=== PATIENT | female | born 1940 | race Caucasian/White ===

== ENCOUNTER 2018-04-02 18:53 | Observation (INO) | payer MEDICARE, OTHER ==
[2018-04-02] MEDS ORDERED: IPRATROPIUM/ALBUTEROL 0.5-2.5 MG/3 ML AMPUL NEB ONE (19:45)
--- NOTE | 2018-04-02 19:47 | ER Document Report ---
ED Medical Screen (RME) - General Chief Complaint: Altered Mental Status Stated Complaint: TROUBLE BREATHING/CONFUSION Time Seen by Provider: 04/02/18 19:44 Mode of Arrival: Wheelchair Information source: Patient Notes: 78 years old female with a history of COPD, on 2 L nasal cannula, flew down from [place] yesterday, today feeling a little lethargic ,coughing, shortness of breath and also not herself therefore brought her to the ED. Has chronic cough. TRAVEL OUTSIDE OF THE [place] IN LAST 30 DAYS: No - Related Data Allergies/Adverse Reactions: acetaminophen [From Percocet] Allergy (Verified 04/02/18 19:07) oxycodone [From Percocet] Allergy (Verified 04/02/18 19:07) Past Medical History - Social History Frequency of alcohol use: None Drug Abuse: None Renal/ Medical History: Denies: Hx Peritoneal Dialysis Physical Exam - Vital signs Vitals: Temp Pulse Resp BP Pulse Ox 99.2 F 83 14 147/64 H 89 L 04/02/18 19:17 04/02/18 19:17 04/02/18 19:17 04/02/18 19:17 04/02/18 19:17 Course - Vital Signs Vital signs: Temp Pulse Resp BP Pulse Ox 99.2 F 83 14 147/64 H 89 L 04/02/18 19:17 04/02/18 19:17 04/02/18 19:17 04/02/18 19:17 04/02/18 19:17 Doctor's Discharge - Discharge Referrals: HOWIE,NO [Primary Care Provider] - Follow up as needed
[2018-04-02 20:40] LABS: ABSOLUTE EOSINOPHILS # (AUTO) 0.1 10^3/uL (0.0-0.6); ABSOLUTE LYMPHOCYTES (AUTO) 0.5 10^3/uL (0.5-4.7); ABSOLUTE MONOCYTES (AUTO) 0.2 10^3/uL (0.1-1.4); ABSOLUTE NEUT (AUTO) 5.8 10^3/uL (1.7-8.2); BASOPHILS % (AUTO) 0.3 % (0-2); EOSINOPHILS % (AUTO) 0.8 % (0-6); HEMATOCRIT 38.2 % (36.0-47.0); HEMOGLOBIN 12.8 g/dL (12.0-15.5); LYMPHOCYTES % (AUTO) 8.2 % (13-45); MEAN CORPUSCULAR HGB CONC 33.5 g/dL (32.0-36.0); MEAN CORPUSCULAR VOLUME 96 fl (80-97); PLATELET COUNT 164 10^3/uL (150-450); RED CELL DISTRIBUTION WIDTH 13.3 % (11.5-14.0); SEGMENTED NEUTROPHILS % (AUTO) 87.7 % (42-78); TOTAL CELLS COUNTED % (AUTO) 100 %; WHITE BLOOD COUNT 6.6 10^3/uL (4.0-10.5)
[2018-04-02 20:41] LABS: APPEARANCE,URINE CLEAR; BILIRUBIN,URINE NEGATIVE (NEGATIVE); COLOR,URINE STRAW; GLUCOSE, URINE NEGATIVE (NEGATIVE); KETONES,URINE NEGATIVE (NEGATIVE); LEUKOCYTE ESTERASE,URINE NEGATIVE (NEGATIVE); NITRITE,URINE NEGATIVE (NEGATIVE); PROTEIN,URINE NEGATIVE (NEGATIVE); URINE SPECIFIC GRAVITY 1.006; UROBILINOGEN,URINE NEGATIVE mg/dL (<2.0)
[2018-04-02] MEDS ORDERED: METHYLPREDNISOLONE INJ 125 MG/2 ML SDV IV ONE (20:51)
[2018-04-02 20:57] LABS: ALANINE AMINOTRANSFERASE 26 U/L (9-52); ALBUMIN 4.1 g/dL (3.5-5.0); ALKALINE PHOSPHATASE 71 U/L (38-126); ANION GAP 10 (5-19); ASPARTATE AMINO TRANSFERASE 33 U/L (14-36); BILIRUBIN,DIRECT 0.3 mg/dL (0.0-0.4); BILIRUBIN,TOTAL 0.7 mg/dL (0.2-1.3); BLOOD UREA NITROGEN 10 mg/dL (7-20); CALCIUM 10.1 mg/dL (8.4-10.2); CARBON DIOXIDE 35 mmol/L (22-30); CHLORIDE 96 mmol/L (98-107); GLUCOSE 116 mg/dL (75-110); SODIUM 141.2 mmol/L (137-145); TOTAL PROTEIN 7.1 g/dL (6.3-8.2)
[2018-04-02] MEDS ORDERED: ALBUTEROL SULFATE 0.083% NEB 2.5 MG/3 ML AMPUL NEB ONE ×2 (20:58→22:14)
--- NOTE | 2018-04-02 21:00 | RADIOLOGY REPORT (SQ) ---
EXAM DESCRIPTION: CHEST SINGLE VIEW COMPLETED DATE/TIME: 04/02/2018 8:33 pm REASON FOR STUDY: Shortness of breath COMPARISON: 05/07/2009 EXAM PARAMETERS: NUMBER OF VIEWS: One view. TECHNIQUE: Single frontal radiographic view of the chest acquired. RADIATION DOSE: NA LIMITATIONS: None. FINDINGS: LUNGS AND PLEURA: No opacities, masses or pneumothorax. No pleural effusion. MEDIASTINUM AND HILAR STRUCTURES: No masses. Contour normal. HEART AND VASCULAR STRUCTURES: Heart normal in size. Normal vasculature. BONES: Marked scoliosis. HARDWARE: None in the chest. OTHER: No other significant finding. IMPRESSION: Scoliosis. No acute cardiopulmonary disease. TECHNICAL DOCUMENTATION: JOB ID: [id number] [employer]- All Rights Reserved Reading location - IP/workstation name: [email or web address]
[2018-04-02 21:09] LABS: CREATINE KINASE MB 0.88 ng/mL (<4.55); NT PRO BNP 795 pg/mL (<450)
[2018-04-02 21:10] LABS: TROPONIN I < 0.012 ng/mL
--- NOTE | 2018-04-02 21:11 | ER Document Report ---
ED Respiratory Problem - General Mode of Arrival: Wheelchair Information source: Patient TRAVEL OUTSIDE OF THE [place] IN LAST 30 DAYS: No <CORNELIO RG - Last Filed: 04/02/18 22:34> <MARK SZYMANSKI - Last Filed: 04/03/18 00:30> - General Chief Complaint: Altered Mental Status Stated Complaint: TROUBLE BREATHING/CONFUSION Time Seen by Provider: 04/02/18 19:44 Notes: 78-year-old female who presents to the emergency department today with complaints of shortness of breath and a cough. Patient has COPD from an extensive smoking history. Patient stopped smoking approximately 45 years ago. Patient is visiting her daughter here from out of state but she states she did bring her breathing treatments with her but they did not help. Patient denies fevers. (CORNELIO RG) 78-year-old female patient brought to the emergency room by her daughter for confusion and shortness of breath. Therefore she had been coughing a little more than usual over the last 2-3 days. Patient states it is a nonproductive cough. They had called her pulmonary medicine [facility] in [place] who offered to "send out a Z-Elio" if they felt she needed for her COPD. The patient states she has not been on prednisone and quite some time. The daughter reports about a week ago she had episodes of double vision and off- balance that was attributed to her gabapentin. She had been taking 100 mg dose and it was increased to 300 mg. Her doctor told her to go back to the 100 mg dose. The patient came here to visit, did bring her inhalers and her nebulizer machine , but brought the 300 mg gabapentin. She did take 1 dose about midnight last night. The daughter reports she called her mother about noon today and woke her up. She reports her mother seemed a little confused initially and then was okay. About 4:30 in the afternoon she became a little confused, had slurred to garbled type speech, and seemed to have difficulty walking. She also had a worsening of her shortness of breath. When I saw her in the emergency room about 8:35 PM, the daughter reported that her speech had completely cleared up along with her drowsiness and confusion. At triage her pulse ox was 89% on 2 L nasal cannula, the daughter reports that is normal for this patient. (MARK SZYMANSKI) - Related Data Allergies/Adverse Reactions: acetaminophen [From Percocet] Allergy (Verified 04/02/18 19:07) estrogens, conjugated [From Premarin] Allergy (Verified 04/02/18 19:47) oxycodone [From Percocet] Allergy (Verified 04/02/18 19:07) Past Medical History - General Information source: Patient - Social History Smoking Status: Former Smoker Cigarette use (# per day): No Frequency of alcohol use: None Drug Abuse: None Lives with: Family Family History: Reviewed & Not Pertinent Patient has suicidal ideation: No Patient has homicidal ideation: No - Past Medical History Cardiac Medical History: Reports: Hx Hypercholesterolemia, Hx Hypertension Pulmonary Medical History: Reports: Hx COPD Renal/ Medical History: Denies: Hx Peritoneal Dialysis Past Surgical History: Reports: Hx Abdominal Surgery, Hx Appendectomy, Hx Section, Hx Hysterectomy, Hx Thyroid Surgery <ARCNEIOCORNELIO - Last Filed: 04/02/18 22:34> Review of Systems - Review of Systems Constitutional: No symptoms reported EENT: No symptoms reported Cardiovascular: No symptoms reported Respiratory: See HPI, Cough, Short of breath, Wheezing Gastrointestinal: No symptoms reported Genitourinary: No symptoms reported Female Genitourinary: No symptoms reported Musculoskeletal: No symptoms reported Skin: No symptoms reported Hematologic/Lymphatic: No symptoms reported Neurological/Psychological: No symptoms reported -: Yes All other systems reviewed and negative <ARCENIOCORNELIO - Last Filed: 04/02/18 22:34> Physical Exam <ARCENIOCORNELIO - Last Filed: 04/02/18 22:34> <MARK SZYMANSKI - Last Filed: 04/03/18 00:30> - Vital signs Vitals: Temp Pulse Resp BP Pulse Ox 99.2 F 83 14 147/64 H 89 L 04/02/18 19:17 04/02/18 19:17 04/02/18 19:17 04/02/18 19:17 04/02/18 19:17 - Notes Notes: Physical Exam: General: Alert, appears well. HEENT: Normocephalic. Atraumatic. PERRL. Extraocular movements intact. Oropharynx clear. Neck: Supple. Non-tender. Respiratory: No respiratory distress. Tight expiratory wheezing bilaterally. Cardiovascular: Regular rate and rhythm. Abdominal: Normal Inspection. Non-tender. No distension. Normal Bowel Sounds. Back: Non-tender. No deformity or step off. Extremities: Moves all four extremities. Upper extremities: Normal inspection. Normal ROM. Lower extremities: Normal inspection. No edema. Normal ROM. Neurological: Normal cognition. AAOx4. Normal speech. Psychological: Normal affect. Normal Mood. Skin: Warm. Dry. Normal color. (CORNELIO RG) Course - Laboratory Result Diagrams: 04/02/18 20:21 04/02/18 20:21 <CORNELIO RG - Last Filed: 04/02/18 22:34> - Laboratory Result Diagrams: 04/02/18 20:21 04/02/18 20:21 - Diagnostic Test Radiology reviewed: Image reviewed, Reports reviewed - Chest x-ray shows significant thoracic scoliosis without acute lung changes. CT scan is unremarkable. - EKG Interpretation by Me EKG shows normal: Sinus rhythm, [place], Intervals, QRS Complexes. abnormal: ST-T Waves - Nonspecific anterior lateral T abnormalities Rate: Normal - 74 Rhythm: NSR When compared to previous EKG there are: Previous EKG unavailable - Consults Dr. Jose Time consulted: 00:20 Consulted provider: will come to ER <MARK SZYMANSKI - Last Filed: 04/03/18 00:30> - Re-evaluation Re-evalutation: 04/02/18 23:30 At this time the patient continues to be completely alert and oriented, states her breathing feels as good as normal if not better. Her lungs are much more clear now she does not have as much expiratory wheeze that was heard initially. Her heart is rate is regular, the monitor confirms this, she does not have bruits in her neck. (MARK SZYMANSKI) - Vital Signs Vital signs: Temp Pulse Resp BP Pulse Ox 99.2 F 101 H 18 140/56 H 96 04/02/18 19:17 04/02/18 23:00 04/02/18 23:00 04/02/18 23:00 04/02/18 23:00 - Laboratory Laboratory results interpreted by me: 04/02/18 04/02/18 04/02/18 20:21 20:21 20:21 Seg Neutrophils % 87.7 H Lymphocytes % 8.2 L Chloride 96 L Carbon Dioxide 35 H Glucose 116 H NT-Pro-B Natriuret Pep 795 H Discharge <CORNELIO RG - Last Filed: 04/02/18 22:34> - Discharge Admitting Provider: Hospitalist Unit Admitted: Telemetry <MARK SZYMANSKI - Last Filed: 04/03/18 00:30> - Discharge Clinical Impression: COPD exacerbation, TIA (transient ischemic attack) Condition: Stable Disposition: ADMITTED OBSERVATION Referrals: LOCALMD,NO [NO LOCAL MD] - Follow up as needed Scribe Attestation: 04/02/18 21:12 I personally performed the services described in the documentation, reviewed and edited the documentation which was dictated to the scribe in my presence, and it accurately records my words and actions. (MARK SZYMANSKI) Scribe Documentation - Scribe Written by Rowena:: Rowena Christy, 04/02/2018 [id number] acting as scribe for :: Jerrica <CORNELIO RG - Last Filed: 04/02/18 22:34>
--- NOTE | 2018-04-02 22:28 | EKG REPORT ---
SEVERITY:- ABNORMAL ECG - SINUS RHYTHM NONSPECIFIC T ABNORMALITIES, ANT-LAT LEADS : Confirmed by: Morena Judge MD 02-Apr-2018 22:26:45
--- NOTE | 2018-04-03 00:19 | RADIOLOGY REPORT (SQ) ---
EXAM DESCRIPTION: CT HEAD WITHOUT IV CONTRAST COMPLETED DATE/TME: 04/02/2018 23:22 CLINICAL HISTORY: 78 years Female, TIA COMPARISON: None. TECHNIQUE: No contrast. Coronal and sagittal reformat. This exam was performed according to our departmental dose-optimization program, which includes automated exposure control, adjustment of the mA and/or kV according to patient size and/or use of iterative reconstruction technique. FINDINGS: No hemorrhage or infarct. No mass, mass effect, or midline shift. Atherosclerosis. Brain and extra-axial structures appear otherwise intact. IMPRESSION: No acute findings.
[2018-04-03] MEDS ORDERED: ONDANSETRON HCL INJ/PF 4 MG/2 ML SDV IV PRN (02:34)
[2018-04-03] MEDS ORDERED: MAG HYDROX/AL HYDROX/SIMETH SUSP 30 ML UDCUP PO PRN (02:34)
[2018-04-03] MEDS ORDERED: MAGNESIUM HYDROXIDE SUSP 30 ML UDCUP PO PRN (02:34)
[2018-04-03] MEDS ORDERED: ZOLPIDEM TARTRATE 5 MG TABLET PO ONE (03:45)
[2018-04-03] MEDS ORDERED: TRAZODONE HCL 50 MG TABLET PO ONE (04:00)
--- NOTE | 2018-04-03 04:08 | PDOC H&P ---
History of Present Illness Admission Date/PCP: 04/03/18 00:36 Patient complains of: Dizziness, difficulty walking and double vision History of Present Illness: INDRA [place] is a 78 year old female with history of multiple medical problems that will be mentioned below who presented to the emergency room with acute onset of dizziness with associated difficulty with ambulation as well as diplopia that occurred twice in addition to confusion and slurred speech. She had a recent URI with worsening dyspnea cough and wheezing. Her cough has been nonproductive. She denies any fever or chills. No nausea vomiting or abdominal pain. No paresthesias or focal muscle weakness. No tendinitis or vertigo. She denied any urinary or stool incontinence. Upon presentation to the emergency room vital signs revealed a temperature of 99.2 and a pulse oximetry of 89% on room air blood pressure of 147/64 with a pulse of 83 and respiratory rate of 14. Labs were remarkable for a chloride of 96 and CO2 35 with a glucose of 116. BNP was 795 and troponin I less than 0.0- 12 otherwise CMP and CBC were within normal. Head CT scan revealed no acute intracranial abnormalities and chest x-ray showed no acute cardiopulmonary disease. EKG showed normal sinus rhythm with no acute abnormalities. The patient was given duo nebs as well as nebulized albuterol twice in the emergency room and IV Solu-Medrol. She will be admitted to an observation medically monitored bed for further evaluation and management. Past Medical History Cardiac Medical History: Reports: Hyperlipidema, Hypertension Pulmonary Medical History: Reports: Chronic Obstructive Pulmonary Disease (COPD) Endocrine Medical History: Reports: Hypothyroidism Musculoskeletal History Note: Scoliosis Past Surgical History Past Surgical History: Reports: Appendectomy, Section, Cholecystectomy , Hysterectomy, Thyroidectomy, Tonsillectomy Social History Lives with: Family Smoking Status: Former Smoker Frequency of Alcohol Use: None Hx Recreational Drug Use: No Family History Family History: CVA, DM Parental Family History Reviewed: Yes Children Family History Reviewed: Yes Sibling(s) Family History Reviewed.: Yes Medication/Allergy Home Medications: Fluticasone/Salmeterol [Advair 250-50 Diskus 28 dose] 2 inh IH QHS 04/03/18 Levothyroxine Sodium 1 tab PO QAM 04/03/18 Lisinopril [Lisinopril] 1 tab PO QAM 08/07/18 Trazodone HCl 150 mg PO QHS 04/03/18 Umeclidinium [place] [Incruse Ellipta] 2 puff IH QAM 04/03/18 Zolpidem Tartrate 2.5 mg PO QHS 04/03/18 Allergies/Adverse Reactions: acetaminophen [From Percocet] Allergy (Verified 04/02/18 19:07) estrogens, conjugated [From Premarin] Allergy (Verified 04/02/18 19:47) oxycodone [From Percocet] Allergy (Verified 04/02/18 19:07) Review of Systems Review of Systems: As per history of present illness. All pertinent systems were reviewed above. Constitutional, HEENT, cardiovascular, respiratory, GI, , musculoskeletal, neuro, psychiatric, endocrine, integumentary and hematologic systems were reviewed and are otherwise negative/unremarkable except for positive findings mentioned above in the HPI. Physical Exam Vital Signs: Temp Pulse Resp BP Pulse Ox 97.9 F 81 16 115/52 L 97 04/03/18 00:00 04/03/18 03:00 04/03/18 03:00 04/03/18 03:00 04/03/18 03:00 Exam: Generally: Very pleasant 78-year-old female in no acute distress Vital signs-as listed Head - atraumatic, normocephalic. Pupils - equal, round and reactive to light and accommodation. Extraocular movements are intact. No scleral icterus. Oropharynx - moist mucous membranes and tongue. No pharyngeal erythema or exudate. Neck - supple. No JVD. Carotid pulses 2+ bilaterally. No carotid bruits. No palpable thyromegaly or lymphadenopathy. Cardiovascular - regular rate and rhythm. Normal S1 and S2. No murmurs, gallops or rubs. Lungs -diminished expiratory airflow with diffuse expiratory wheezes and harsh vesicular breathing. Abdomen - soft and nontender. Positive bowel sounds. No palpable organomegaly or masses. Extremities - no pitting edema, clubbing or cyanosis. Neuro - grossly non-focal with grossly intact cranial nerves II through XII. Muscle strength were equal 5/5 in both upper and lower extremities with normal sensory exam to light touch.. Skin - no rashes. Breast, pelvic and rectal - deferred Results Impressions: Chest X-Ray 04/02/18 19:45 IMPRESSION: Scoliosis. No acute cardiopulmonary disease. Head CT 04/02/18 23:22 IMPRESSION: No acute findings. Assessment & Plan - Diagnosis (1) TIA (transient ischemic attack) Is this a current diagnosis for this admission?: Yes Plan: The patient will be admitted to an observation medically monitored bed. We will follow neuro checks q.4 hours for 24 hours. The patient will be placed on aspirin. Will obtain a brain MRI without contrast as well as bilateral carotid Doppler and 2D echo with bubble study . Physical/occupation/speech therapy consults will be obtained in a.m.. The patient will be placed on statin therapy and fasting lipids will be checked. (2) COPD exacerbation Is this a current diagnosis for this admission?: Yes Plan: The patient will be placed on IV steroid therapy with IV Solu-Medrol as well as nebulized bronchodilator therapy with duonebs q.i.d. and q.4 hours p.r.n., mucolytic therapy with Mucinex. O2 protocol will be followed. (3) Hypothyroidism Is this a current diagnosis for this admission?: Yes Plan: We will continue Synthroid and check TSH level (4) Hypertension Qualifiers: Hypertension type: essential hypertension Qualified Code(s): I10 - Essential (primary) hypertension Is this a current diagnosis for this admission?: Yes Plan: We will continue lisinopril and allow permissive hypertension (5) DVT prophylaxis Is this a current diagnosis for this admission?: Yes Plan: Subcutaneous Lovenox - Plan Summary Plan Summary: The plan of care was discussed in details with the patient. I answered all questions. The patient agreed to proceed with the above-mentioned plan. The patient is presumably full code. This note was created by [employer] software and may contain typo errors that may have not been proofread.
[2018-04-03] MEDS: NORMAL SALINE 1000 ML 1,000 ML IV PRN ×2 (05:00→17:41)
[2018-04-03] MEDS: LANSOPRAZOLE 30 MG TAB.RAP.DR PO SCH (06:20)
[2018-04-03] MEDS: METHYLPREDNISOLONE INJ 40 MG/1 ML SDV IV SCH ×3 (06:20→22:11)
[2018-04-03 06:58] LABS: ANION GAP 10 (5-19); BLOOD UREA NITROGEN 13 mg/dL (7-20); CALCIUM 9.3 mg/dL (8.4-10.2); CARBON DIOXIDE 33 mmol/L (22-30); CHLORIDE 99 mmol/L (98-107); GLUCOSE 171 mg/dL (75-110); POTASSIUM 4.3 mmol/L (3.6-5.0); SODIUM 141.8 mmol/L (137-145); TRIGLYCERIDES 69 mg/dL (<150)
[2018-04-03 07:08] LABS: DIRECT LDL 89 mg/dL (<100)
[2018-04-03] MEDS ORDERED: LEVOTHYROXINE SODIUM 0.088 MG TABLET PO SCH (08:00)
[2018-04-03] MEDS ORDERED: UMECLIDINIUM BROMIDE IH SCH (08:00)
--- NOTE | 2018-04-03 10:35 | RADIOLOGY REPORT (SQ) ---
EXAM DESCRIPTION: MRI HEAD WITHOUT COMPLETED DATE/TIME: 04/03/2018 10:14 am REASON FOR STUDY: TIA COMPARISON: None. TECHNIQUE: Multiplanar imaging includes non-contrasted T1, T2, FLAIR, and Diffusion with ADC map seq uences. Images stored on PACS. LIMITATIONS: None. FINDINGS: ANATOMY: No anomalies. Normal vascular flow voids. Pituitary fossa normal. CSF SPACES: Normal in size and contour. No hemorrhage. CEREBRUM: A few high-signal intensity lesions scattered throughout the white matter on FLAIR imaging with distribution suggesting chronic micro-vascular ischemic change. Sulci and gyri normal in size a nd contour. No evidence of hemorrhage, mass or extraaxial fluid collection. POSTERIOR FOSSA: No signal alteration. No hemorrhage. No edema, masses or mass effect. Internal samantha tory canals, cerebello-pontine angles, normal. Small amount of fluid in the right mastoid. DIFFUSION: Negative for acute or sub-acute infarction. ORBITS: No masses. Globes normal. PARANASAL SINUSES: No fluid levels. Mucosa normal. OTHER: No other significant finding. IMPRESSION: MINIMAL MICROVASCULAR ISCHEMIC CHANGE. OTHERWISE NORMAL STUDY. EVIDENCE OF ACUTE STROKE: NO. TECHNICAL DOCUMENTATION: JOB ID: [id number] [employer]- All Rights Reserved Reading location - IP/workstation name: [email or web address]
[2018-04-03] MEDS: ASPIRIN 81 MG TABLET, ENT COATED PO SCH (12:00)
[2018-04-03] MEDS: GUAIFENESIN 600 MG TABLET.SA PO SCH ×2 (12:07→22:11)
[2018-04-03] MEDS: LISINOPRIL 10 MG TABLET PO SCH (12:07)
[2018-04-03] MEDS: ALBUTEROL SULFATE 0.083% NEB 2.5 MG/3 ML AMPUL NEB SCH ×2 (12:12→15:28)
[2018-04-03] MEDS: ENOXAPARIN SODIUM INJ 40 MG/0.4 ML DISP.SYRIN SUBCUT SCH (15:09)
[2018-04-03] MEDS: IPRATROPIUM/ALBUTEROL 0.5-2.5 MG/3 ML AMPUL NEB SCH ×3 (15:27→17:28)
[2018-04-03] MEDS: LEVOTHYROXINE SODIUM 0.088 MG TABLET PO SCH (17:31)
[2018-04-03] MEDS: ALBUTEROL SULFATE 0.083% NEB 2.5 MG/3 ML AMPUL NEB PRN (21:52)
[2018-04-03] MEDS: TRAZODONE HCL 50 MG TABLET PO SCH (22:11)
[2018-04-03] MEDS: ZOLPIDEM TARTRATE 5 MG TABLET PO SCH (22:14)
[2018-04-04] MEDS: NORMAL SALINE 1000 ML 1,000 ML IV PRN ×2 (03:08→16:16)
[2018-04-04 04:27] LABS: ANION GAP 7 (5-19); BLOOD UREA NITROGEN 21 mg/dL (7-20); CARBON DIOXIDE 31 mmol/L (22-30); CHLORIDE 104 mmol/L (98-107); GLUCOSE 152 mg/dL (75-110); POTASSIUM 4.3 mmol/L (3.6-5.0); SODIUM 141.5 mmol/L (137-145)
[2018-04-04] MEDS: LEVOTHYROXINE SODIUM 0.088 MG TABLET PO SCH (05:34)
[2018-04-04] MEDS: LANSOPRAZOLE 30 MG TAB.RAP.DR PO SCH (05:34)
[2018-04-04] MEDS: METHYLPREDNISOLONE INJ 40 MG/1 ML SDV IV SCH ×2 (05:34→14:25)
[2018-04-04] MEDS: LISINOPRIL 10 MG TABLET PO SCH (09:15)
[2018-04-04] MEDS: ASPIRIN 81 MG TABLET, ENT COATED PO SCH (09:16)
[2018-04-04] MEDS: GUAIFENESIN 600 MG TABLET.SA PO SCH ×2 (09:16→21:58)
[2018-04-04] MEDS: ENOXAPARIN SODIUM INJ 40 MG/0.4 ML DISP.SYRIN SUBCUT SCH (09:16)
--- NOTE | 2018-04-04 16:37 | PDOC PROGRESS REPORT ---
Subjective Progress Note for:: 04/04/18 Subjective:: Admitted with possible TIA with dizziness. Symptoms have completely resolved. Patient is however waiting for echocardiogram and how to Doppler studies to be done prior to discharge Reason For Visit: TIA, COPD EXACERBATION Physical Exam Vital Signs: Temp Pulse Resp BP Pulse Ox 98.5 F 67 16 140/56 H 95 04/04/18 15:37 04/04/18 15:37 04/04/18 15:37 04/04/18 15:37 04/04/18 15:37 Intake & Output 04/03/18 04/04/18 04/05/18 06:59 06:59 06:59 Intake Total 1999 1000 Balance 1999 1000 Weight 55.5 kg General appearance: PRESENT: no acute distress, well-developed, well-nourished Head exam: PRESENT: atraumatic Eye exam: PRESENT: PERRLA Mouth exam: PRESENT: moist, tongue midline Neck exam: PRESENT: lymphadenopathy Respiratory exam: PRESENT: clear to auscultation lori. ABSENT: rales, rhonchi, wheezes GI/Abdominal exam: PRESENT: normal bowel sounds, soft. ABSENT: distended, guarding, mass, organolmegaly, rebound, tenderness Rectal exam: PRESENT: deferred Neurological exam: PRESENT: alert, oriented to person, oriented to place, oriented to time, oriented to situation, CN II-XII grossly intact, motor sensory deficit, normal gait Results Laboratory Results: 04/04/18 03:58 04/04/18 03:58 Sodium 141.5 Potassium 4.3 Chloride 104 Carbon Dioxide 31 H Anion Gap 7 BUN 21 H Creatinine 0.58 Est GFR ( Amer) > 60 Est GFR (Non-Af Amer) > 60 Glucose 152 H Calcium 9.0 Impressions: Chest X-Ray 04/02/18 19:45 IMPRESSION: Scoliosis. No acute cardiopulmonary disease. Head CT 04/02/18 23:22 IMPRESSION: No acute findings. Head MRI 04/03/18 08:00 IMPRESSION: MINIMAL MICROVASCULAR ISCHEMIC CHANGE. OTHERWISE NORMAL STUDY. EVIDENCE OF ACUTE STROKE: NO. Assessment & Plan - Diagnosis (1) TIA (transient ischemic attack) Is this a current diagnosis for this admission?: Yes Plan: Continue ASA Obtain tests as ordered (2) COPD exacerbation Is this a current diagnosis for this admission?: Yes Plan: DC steroids and continue bronchodilators (3) Hypertension Qualifiers: Hypertension type: essential hypertension Qualified Code(s): I10 - Essential (primary) hypertension Is this a current diagnosis for this admission?: Yes (4) Hypothyroidism Is this a current diagnosis for this admission?: Yes Plan: Stable - Time Time Spent with patient: 15-24 minutes Medications reviewed and adjusted accordingly: Yes Anticipated discharge: Home Within: within 24 hours - Inpatient Certification Based on my medical assessment, after consideration of the patient's comorbidities, presenting symptoms, or acuity I expect that the services needed warrant INPATIENT care.: Yes Medical Necessity: Need Close Monitoring Due to Risk of Patient Decompensation, Other - Need to obtain imaging studies which are still pending
[2018-04-04] MEDS: ZOLPIDEM TARTRATE 5 MG TABLET PO SCH (21:58)
[2018-04-04] MEDS: TRAZODONE HCL 50 MG TABLET PO SCH (21:58)
[2018-04-05] MEDS: LANSOPRAZOLE 30 MG TAB.RAP.DR PO SCH (05:51)
[2018-04-05] MEDS: LEVOTHYROXINE SODIUM 0.088 MG TABLET PO SCH (05:51)
[2018-04-05] MEDS: ALBUTEROL SULFATE 0.083% NEB 2.5 MG/3 ML AMPUL NEB PRN (09:23)
--- NOTE | 2018-04-05 09:42 | Physician Advisory Note ---
Physician Advisor ProgressNote .: Pursuant to the plan for [facility], I have reviewed the medical record for this patient. Physician Advisor Statement: Please consider documenting, if you agree: 1. "Chronic hypoxemic respiratory failure, requiring 2L O2 at baseline" 2.
[2018-04-05] MEDS: LISINOPRIL 10 MG TABLET PO SCH (09:49)
[2018-04-05] MEDS: ENOXAPARIN SODIUM INJ 40 MG/0.4 ML DISP.SYRIN SUBCUT SCH (09:49)
[2018-04-05] MEDS: ASPIRIN 81 MG TABLET, ENT COATED PO SCH (09:50)
[2018-04-05] MEDS: GUAIFENESIN 600 MG TABLET.SA PO SCH (09:50)
[2018-04-05] MEDS ORDERED: IPRATROPIUM/ALBUTEROL 0.5-2.5 MG/3 ML AMPUL NEB PRN (12:46)
[2018-04-05] MEDS ORDERED: IPRATROPIUM/ALBUTEROL 0.5-2.5 MG/3 ML AMPUL NEB SCH (16:00)
--- NOTE | 2018-04-05 16:31 | RADIOLOGY REPORT (SQ) ---
EXAM DESCRIPTION: CAROTID DOPPLER COMPLETED DATE/TIME: 04/05/2018 4:19 pm REASON FOR STUDY: R/o CVA G45.9 TRANSIENT CEREBRAL ISCHEMIC ATTACK, UNSPECIFIED COMPARISON: MRI brain 04/03/2018 CT brain 04/03/2018 TECHNIQUE: Grayscale ultrasound, Doppler velocity and spectra, and color Doppler images acquired of the extra-cranial carotid and vertebral arteries. Images stored on PACS. LIMITATIONS: None. FINDINGS: RIGHT CAROTID CCA Velocities: Within normal limits. ICA Velocities Peak systolic 0.8 m/s. End diastolic 0.21 m/s. Proximal ICA/CCA peak systolic ratio normal. Spectra normal. Minimal spotty calcific plaque at the right carotid bifurcation without flow signifi cant stenosis LEFT CAROTID CCA Velocities: Within normal limits. ICA Velocities Peak systolic 0.77 m/s. End diastolic 0.15 m/s. Proximal ICA/CCA peak systolic ratio normal. Spectra normal. Minimal spotty calcific plaque at the left carotid bifurcation without flow signific ant stenosis VERTEBRAL ARTERIES: Antegrade flow. Normal waveforms. SUBCLAVIAN ARTERIES: Not evaluated OTHER: No other significant finding. IMPRESSION: No flow significant stenosis at the carotid bifurcations. COMMENT: No technologists worksheet in PACs Quality ID #[id number]: Velocity criteria are extrapolated from the diameter data as defined by the Society of Radiologists in Ultrasound Consensus Conference. Radiology 2003: 229; 340-346. TECHNICAL DOCUMENTATION: JOB ID: [id number] [employer]- All Rights Reserved Reading location - IP/workstation name: [email or web address]
[2018-04-05 16:39] VITALS: BP 131/50
--- NOTE | 2018-04-05 18:21 | PDOC DISCHARGE SUMMARY ---
General - Admit/Disc Date/PCP Admission Date/Primary Care Provider: 04/03/18 00:36 Discharge Date: 04/05/18 - Discharge Diagnosis (1) TIA (transient ischemic attack) Is this a current diagnosis for this admission?: Yes (2) COPD exacerbation Is this a current diagnosis for this admission?: Yes (3) Hypertension Is this a current diagnosis for this admission?: Yes (4) Hypothyroidism Is this a current diagnosis for this admission?: Yes (5) Chronic respiratory failure with hypoxia, on home O2 therapy Is this a current diagnosis for this admission?: Yes Summary: Baseline 2L O2 - Additional Information Discharge Diet: Cardiac Discharge Activity: Activity As Tolerated Home Medications: Albuterol Sulfate [Albuterol Sulfate 2.5mg/3 mL] 1 vial NEB TIDP PRN 04/03/18 Albuterol Sulfate [Proair HFA Inhalation Aerosol 8.5 gm MDI] 2 puff IH Q4HP PRN 04/03/18 Fluticasone/Salmeterol [Advair 250-50 Diskus 28 dose] 1 puff IH Q12 04/03/18 Levothyroxine Sodium 88 mcg PO Q6AM 04/03/18 Lisinopril 20 mg PO QAM 04/03/18 Trazodone HCl 150 mg PO QHS 04/03/18 Umeclidinium [place] [Incruse Ellipta] 1 puff IH DAILY 04/03/18 Zolpidem Tartrate 5 mg PO QHS 04/03/18 Aspirin [Ecotrin 81 mg EC Tablet] 81 mg PO DAILY tabec 04/04/18 History of Present Illness History of Present Illness: INDRA NJ is a 78 year old female Patient was admitted with the acute onset of dizziness associated with the diplopia as well as confusion and slurred speech. She was thought to have a possible TIA. She was also found to be hypoxemic mildly and she was thought to have a possible COPD exacerbation. Patient does have history of COPD with chronic respiratory failure on home oxygen. Hospital Course Hospital Course: Patient was admitted with the acute onset of dizziness associated with the diplopia as well as confusion and slurred speech. She was thought to have a possible TIA. She was also found to be hypoxemic mildly and she was thought to have a possible COPD exacerbation. Patient does have history of COPD with chronic respiratory failure on home oxygen. Patient was monitored on telemetry floor. Echocardiogram and carotid Doppler studies were a ordered and obtained. At the time of this dictation echocardiogram is still pending however carotid Doppler studies shows no significant findings and patient has been stable with no progression of her symptoms. She did have an episode of wheezing and difficulty breathing and she was treated with bronchodilators as well as intravenous steroids. At this time with no further interventions been planned and with resolution of presenting symptoms patient is been discharged home. She will continue with Zithromax as well as her steroids that was previously prescribed as outpatient Physical Exam Vital Signs: Temp Pulse Resp BP Pulse Ox 98.5 F 78 16 116/53 L 95 04/04/18 12:00 04/04/18 12:00 04/04/18 12:00 04/04/18 12:00 04/04/18 12:00 Intake & Output 04/03/18 04/04/18 04/05/18 06:59 06:59 06:59 Intake Total 1999 Balance 1999 Weight 55.5 kg General appearance: PRESENT: no acute distress, thin Head exam: PRESENT: atraumatic, normocephalic Eye exam: PRESENT: conjunctiva pink, EOMI, PERRLA. ABSENT: scleral icterus Ear exam: PRESENT: normal external ear exam Mouth exam: PRESENT: moist, tongue midline Neck exam: ABSENT: carotid bruit, JVD, lymphadenopathy, thyromegaly Respiratory exam: PRESENT: clear to auscultation lori. ABSENT: rales, rhonchi, wheezes Cardiovascular exam: PRESENT: RRR. ABSENT: diastolic murmur, rubs, systolic murmur Pulses: PRESENT: normal dorsalis pedis pul Vascular exam: PRESENT: normal capillary refill GI/Abdominal exam: PRESENT: normal bowel sounds, soft. ABSENT: distended, guarding, mass, organolmegaly, rebound, tenderness Rectal exam: PRESENT: deferred Extremities exam: PRESENT: full ROM. ABSENT: calf tenderness, clubbing, pedal edema Neurological exam: PRESENT: alert, awake, oriented to person, oriented to place , oriented to time, oriented to situation, CN II-XII grossly intact. ABSENT: motor sensory deficit Psychiatric exam: PRESENT: appropriate affect, normal mood. ABSENT: homicidal ideation, suicidal ideation Skin exam: PRESENT: dry, intact, warm. ABSENT: cyanosis, rash Results Laboratory Results: 04/04/18 03:58 04/04/18 03:58 Sodium 141.5 Potassium 4.3 Chloride 104 Carbon Dioxide 31 H Anion Gap 7 BUN 21 H Creatinine 0.58 Est GFR ( Amer) > 60 Est GFR (Non-Af Amer) > 60 Glucose 152 H Calcium 9.0 Impressions: Chest X-Ray 04/02/18 19:45 IMPRESSION: Scoliosis. No acute cardiopulmonary disease. Head CT 04/02/18 23:22 IMPRESSION: No acute findings. Head MRI 04/03/18 08:00 IMPRESSION: MINIMAL MICROVASCULAR ISCHEMIC CHANGE. OTHERWISE NORMAL STUDY. EVIDENCE OF ACUTE STROKE: NO. Qualifiers - * PATIENT BEING DISCHARGED WITH ANY OF THE FOLLOWING DIAGNOSIS: No Plan Time Spent: Less than 30 Minutes
--- NOTE | 2018-04-05 18:53 | XCELERA REPORT ---
[address] [address] Transthoracic Echocardiogram Report Name: INDRA NJ Age: 78 yrs Gender: Female : 1940 Patient Status: Inpatient Patient Location: [address] [place], [place] [id number] Study Date: 04/05/2018 03:17 PM Height: 57 in Weight: 126 lb BSA: 1.5 m2 Procedure: A complete two-dimensional transthoracic echocardiogram was performed (2D, M-mode, spectral and color flow Doppler). The study was technically adequate with some images being suboptimal in quality. Reason For Study: R/O CVA Ordering Physician: RADHA BROWER Performed By: Megan Garsia Interpretation Summary The left ventricular ejection fraction is normal. There is mild concentric left ventricular hypertrophy. The left ventricle is grossly normal size. LV diastolic function could not be adequately assessed. Wall motion cannot be accurately commented on, but no definite regional wall motion abnormalities noted. The right ventricle is mildly dilated. The right ventricular systolic function is normal. The right atrium is mildly dilated. The left atrium is mildly dilated. There is a mild to moderate amount of mitral regurgitation There is no mitral valve stenosis. There is no aortic valve stenosis No aortic regurgitation is present. There is a mild amount of tricuspid regurgitation There is mild pulmonary hypertension by echo Right ventricular systolic pressure is estimated to be elevated at 30-40mmHg. The aortic root is not well visualized but is probably normal size. The inferior vena cava appeared normal and decreased > 50% with respiration (RAP 5-10 mmHg) There is no pericardial effusion. Consider MANUEL if clinically indicated. No definite cardiac source of CVA/TIA noted on this particular trans-thoracic study. May consider mobile cardiac telemetry monitoring (MCT) for ruling out transient AFIB. MMode/2D Measurements & Calculations RVDd: 3.1 cm LVIDd: 4.7 cm FS: 45.2 % Ao root diam: 2.8 cm IVSd: 1.0 cm LVIDs: 2.6 cm EDV(Teich): 103.2 ml Ao root area: 6.3 cm2 LVPWd: 0.99 cm ESV(Teich): 24.3 ml EF(Teich): 76.5 % Doppler Measurements & Calculations MV E max cheryle: MV dec slope: Ao V2 max: LV V1 max P.3 cm/sec 728.6 cm/sec2 181.9 cm/sec 3.3 mmHg MV A max cheryle: MV dec time: 0.16 sec Ao max PG: LV V1 max: 66.4 cm/sec 13.2 mmHg 90.2 cm/sec MV E/A: 1.7 PA V2 max: TR max cheryle: 79.8 cm/sec 231.4 cm/sec PA max P.5 mmHg TR max P.8 mmHg Left Ventricle The left ventricle is grossly normal size. There is mild concentric left ventricular hypertrophy. The left ventricular ejection fraction is normal. LV diastolic function could not be adequately assessed. Wall motion cannot be accurately commented on, but no definite regional wall motion abnormalities noted. Right Ventricle The right ventricle is mildly dilated. The right ventricular systolic function is normal. Atria The right atrium is mildly dilated. The left atrium is mildly dilated. Interarterial septum not well visualized and not well dopplered. Cannot comment on ASD/PFO presence. Mitral Valve The mitral valve is grossly normal. There is no mitral valve stenosis. There is a mild to moderate amount of mitral regurgitation. Aortic Valve The aortic valve is mildly calcified. There is no aortic valve stenosis. No aortic regurgitation is present. Tricuspid Valve The tricuspid valve is not well visualized, but is grossly normal. There is no tricuspid stenosis. There is a mild amount of tricuspid regurgitation. Right ventricular systolic pressure is estimated to be elevated at 30-40mmHg. There is mild pulmonary hypertension by echo. Pulmonic Valve The pulmonic valve is not well visualized. Great Vessels The aortic root is not well visualized but is probably normal size. The inferior vena cava appeared normal and decreased > 50% with respiration (RAP 5-10 mmHg). Effusions There is no pericardial effusion. Incidental Findings Consider MANUEL if clinically indicated. No definite cardiac source of CVA/TIA noted on this particular trans-thoracic study. May consider mobile cardiac telemetry monitoring (MCT) for ruling out transient AFIB. : RADHA BROWER > Louis Mendez
[2018-04-06] MEDS ORDERED: AZITHROMYCIN 250 MG TABLET PO SCH (10:00)
== END 2018-04-05 17:02 | disposition home or self-care (01) ==
LOC: ER 18:53 → EH 04-03 00:36 → 3N 04-03 16:45
PROVIDERS: ADMIT Internal Medicine; ATTEND Internal Medicine
DX: G45.9 Transient cerebral ischemic attack, unspecified (principal); J44.1 Chronic obstructive pulmonary disease with (acute) exacerbation; I10 Essential (primary) hypertension; E03.9 Hypothyroidism, unspecified; J96.11 Chronic respiratory failure with hypoxia; Z99.81 Dependence on supplemental oxygen; R26.2 Difficulty in walking, not elsewhere classified; H53.2 Diplopia; Z82.3 Family history of stroke; Z83.3 Family history of diabetes mellitus; Z79.899 Other long term (current) drug therapy; Z90.49 Acquired absence of other specified parts of digestive tract; Z87.891 Personal history of nicotine dependence
CPT/HCPCS: 93005; 96376; 94640 ×3; 99285; 96374; 36415 ×3; 82553; 85025; 80048 ×2; 80053; 81001; 84484; 80061; 83880; 93306; 93880; 70551; 71045; 70450; 93010; G0378 ×4; A9270 ×23; J2920 ×2; J2930; J1650 ×3; J7030 ×2; J7620